=== PATIENT | female | born 1995 | race Caucasian/White ===

== ENCOUNTER → 2020-10-10 08:39 | Outpatient (BNVA) | payer OTHER, SELFPAY | PROVIDERS: Family Provider General Practice; PCP Orthopaedic Surgery; Visit Provider Nurse Practitioner Women's Health | DX: R87.610 Atypical squamous cells of undetermined significance on cytologic smear of cervix (ASC-US) (principal); Z11.3 Encounter for screening for infections with a predominantly sexual mode of transmission; N90.89 Other specified noninflammatory disorders of vulva and perineum | CPT/HCPCS: 87529; 88175 ==

== ENCOUNTER → 2023-01-23 10:21 | Outpatient (BNVA) | payer SELFPAY | PROVIDERS: Family Provider General Practice; PCP Orthopaedic Surgery; Visit Provider Family Medicine | DX: Z34.90 Encounter for supervision of normal pregnancy, unspecified, unspecified trimester (principal); R30.0 Dysuria | CPT/HCPCS: 80307; 81000; 81025; 84144; 84443; 84702; 85025; 86592; 86762; 86803; 86850; 86900; 87086; 87340; 87491; 87591; 87624; 87806 ==

== ENCOUNTER → 2023-03-27 10:43 | Outpatient (BNVA) | payer OTHER, SELFPAY | PROVIDERS: Family Provider General Practice; PCP Orthopaedic Surgery; Visit Provider Family Medicine | DX: Z34.00 Encounter for supervision of normal first pregnancy, unspecified trimester (principal) | CPT/HCPCS: 81511 ==

== ENCOUNTER 2023-04-24 08:42 | Outpatient (CLI) | payer OTHER, SELFPAY ==
--- NOTE | 2023-04-24 09:15 | US_ITS ---
WS: [id number] OBSTETRICAL ULTRASOUND COMPLETE HISTORY: Anatomy US - 9 weeks from now COMPARISON: None available. Single intrauterine gestation in variable presentation. Cervix is Closed and normal length. Cervical length is 3.8 cm. Normal amount of amniotic fluid surrounds the fetus. Placenta: Anterior, no previa or abruption. Placenta grade 1 Heart: 147 BPM. Four chambers are identified. Outflow tracts and anatomy is difficult to visualize du e to the maternal body habitus. Anatomy: Intracranial structures and spine are normal. kidneys, stomach and urinary bladd er are unremarkable. Abdominal wall, three-vessel cord and cord insertion site are normal. 4 extremities are present. profile: Unremarkable. Gender: Male. measurements: BPD = 4.8 cm = 20w3d; HC = 18.4 cm = 20w5d; AC = 14.7 cm = 20w0d; FL = 3.2 cm = 20w0d; EFW: 330 g. Biometry is internally concordant. AGA by ultrasound: 20w2d RADHA by ultrasound: 09/09/2023 IMPRESSION: 1. Single intrauterine gestation of 20w2d with an RADHA of 09/09/2023. 2. Anatomic screening survey is mildly limited. Especially limited detail concerning the heart. Sugg est cardiac reevaluation in 3 to 4 weeks. The remaining anatomy appears to be within normal limits.
== END 2023-04-24 08:43 | disposition home or self-care (01) ==
LOC: RAD 08:43
PROVIDERS: Family Provider General Practice; PCP Orthopaedic Surgery; Visit Provider Family Medicine
DX: O26.892 Other specified pregnancy related conditions, second trimester (principal); Z3A.20 20 weeks gestation of pregnancy
CPT/HCPCS: 76805

== ENCOUNTER → 2023-05-01 12:23 | Outpatient (BNVA) | payer OTHER, SELFPAY | PROVIDERS: Family Provider General Practice; PCP Orthopaedic Surgery; Visit Provider Family Medicine | DX: Z34.00 Encounter for supervision of normal first pregnancy, unspecified trimester (principal) | CPT/HCPCS: 87086 ==

== ENCOUNTER → 2023-05-29 08:06 | Outpatient (BNVA) | payer OTHER, SELFPAY | PROVIDERS: Family Provider General Practice; PCP Orthopaedic Surgery; Visit Provider Family Medicine | DX: Z34.00 Encounter for supervision of normal first pregnancy, unspecified trimester (principal) | CPT/HCPCS: 82950 ==

== ENCOUNTER 2023-06-05 09:21 | Outpatient (CLI) | payer OTHER, SELFPAY ==
--- NOTE | 2023-06-05 09:30 | US_ITS ---
WS: [id number] ULTRASOUND OB FOCUSED HISTORY: Follow up US of heart in 3 weeks COMPARISON: 04/24/2023 Single intrauterine gestation is present in cephalic presentation Heart rate at 136 bpm. Cervix is closed. Anterior grade 1 placenta. Normal amniotic fluid. heart rate at 136 BPM. Reevaluation of the heart is performed. Four-chamber heart is identified. There is continued li mited evaluation of the outflow tracts. The size of the outflow tracts appears appropriate and there is no obvious abnormality. Very limited due to patient's body habitus. IMPRESSION: 1. Continued limited evaluation of the cardiac outflow tracts due to body habitus. Grossly unremarka ble. There is no asymmetry of the outflow tracts. Normal four-chamber heart. 2. Normal cardiac activity.
== END 2023-06-05 09:22 | disposition home or self-care (01) ==
PROVIDERS: Family Provider General Practice; PCP Family Medicine; Visit Provider Family Medicine
DX: Z34.00 Encounter for supervision of normal first pregnancy, unspecified trimester (principal); Z36.89 Encounter for other specified antenatal screening
CPT/HCPCS: 76815

== ENCOUNTER → 2023-07-24 09:41 | Outpatient (BNVA) | payer OTHER, SELFPAY | PROVIDERS: Family Provider General Practice; PCP Family Medicine; Visit Provider Family Medicine | DX: Z51.81 Encounter for therapeutic drug level monitoring (principal) | CPT/HCPCS: 85025 ==

== ENCOUNTER → 2023-08-14 10:17 | Outpatient (BNVA) | payer OTHER, SELFPAY | PROVIDERS: Family Provider General Practice; PCP Family Medicine; Visit Provider Family Medicine | DX: Z34.90 Encounter for supervision of normal pregnancy, unspecified, unspecified trimester (principal); Z3A.00 Weeks of gestation of pregnancy not specified | CPT/HCPCS: 87081 ==

== ENCOUNTER 2023-09-15 07:08 | Inpatient (IN) | payer OTHER, SELFPAY ==
[2023-09-15] VITALS (54 sets, daily range): BP systolic 95–180; BP diastolic 53–103; PULSE 76–120; RESP 15–17; TEMP 36.2–36.7; O2SAT 96–99; BMI 43.1
[2023-09-15 08:12] LABS: Basophils % 0.3 %; Eosinophils # 0.1 10^3/uL (0.0-0.8); Hematocrit 39.3 % (36-47); Lymphocytes # 2.6 10^3/uL (0.8-4.8); Lymphocytes % 24.3 %; Mean Corpuscular HGB Conc 33.6 g/dL (30-55); Mean Corpuscular Hemoglobin 30.2 pg (27-33); Mean Corpuscular Volume 89.9 fl (85-98); Mean Platelet Volume 10.3 fL (7.4-10.4); Monocytes # 0.6 10^3/uL (0.2-0.9); Monocytes % 5.9 %; Neutrophils % 68.2 %; Nucleated Red Blood Cells % 0 %; Platelet Count 290 10^3/cmm (157-399); Red Blood Count 4.37 10^6/uL (3.85-5.65); Red Cell Distribution Width 15.2 % (12.1-15.1); White Blood Count 10.85 10^3/uL (3.29-11.43)
[2023-09-15] MEDS: dextrose 5%-lactated ringers 1,000 ML 125 ML IV (08:17)
[2023-09-15] MEDS: ampicillin 2,000 MG in sodium chloride 0.9% (plus) 50 ML 100 MG IV (08:17)
[2023-09-15 08:30] LABS: Alanine Aminotransferase 11 U/L (0-33); Albumin Level 3.2 g/dL (3.5-5.2); Alkaline Phosphatase 178 U/L (35-105); Anion Gap 16.8 (5-19); Aspartate Amino Transferase 15 U/L (0-32); Blood Urea Nitrogen 8 mg/dL (6-20); Carbon Dioxide 20 mmol/L (22-29); Chloride 102 mmol/L (98-107); Globulin 2.9 g/dL (1.3-4.6); Glomerular Filtration Rate 146.9 mL/min (90-130); Glucose 120 mg/dL (65-115); Osmolality Calculated 280 mOsm/kg (285-295); Potassium 3.8 mmol/L (3.5-5.1); Sodium 135 mmol/L (136-145); Total Bilirubin 0.2 mg/dL (0.15-1.2); Total Protein 6.1 g/dL (6.6-8.7); Uric Acid 4.9 mg/dL (2.4-5.7)
[2023-09-15] MEDS: oxytocin 30 UNIT/500 ML BAG IV (08:30)
[2023-09-15 09:01] LABS: UPRO/UCREAT Ratio 0.11 mg/mg CR; Urine Creatinine 94 mg/dL (28-217); Urine Protein Random 10 mg/dL
[2023-09-15] MEDS: ampicillin 1,000 MG in sodium chloride 0.9% (plus) 50 ML 100 MG IV ×3 (12:03→18:58)
[2023-09-15] MEDS: dextrose 5%-lactated ringers 1,000 ML 105 ML IV (16:09)
[2023-09-15] MEDS: fentaNYL 50 mcg/mL INJ 2mL IVP ×2 (17:35→18:47)
[2023-09-15] MEDS: ondansetron 2 mg/ML SDV 2 mL 4 MG IVP (18:48)
[2023-09-15] MEDS: lactated ringers 1,000 ML 999 ML IV ×2 (18:58→20:05)
[2023-09-15] MEDS: labetalol 5 mg/mL SDV 20mL 20 MG IVP (19:16)
[2023-09-15] MEDS: ROPivacaine syringe 100 MG/50 ML SYRINGE 10 MG EPIDURAL (20:10)
--- NOTE | 2023-09-15 20:10 | ANES.PREANE2 ---
Pre-Anesthetic Assessment Height/Weight: Height 1.57 m Weight 107.048 kg Temp Pulse Resp BP Pulse Ox O2 Del Method 97.3 F L 99 17 168/82 98 Room Air 09/15/23 17:39 09/15/23 20:06 09/15/23 18:47 09/15/23 20:06 09/15/23 20:04 09/15/23 07:15 Preop Diagnosis: IUP epidural Familial anesthetic complications: none Was Beta Krishna taken within 24 hours: N/A Was Clonidine taken within 24 hours: N/A Last Intake: 18:30 Social No alcohol and No tobacco Exam alert and oriented x 3 Airway Submandibular: within normal limits Cervical ROM: within normal limits Mallampati: Class II Dentition: full History/ROS No significant complaints Anesthetic Plan ASA status: 2 Anesthesia: Anesthesia Evaluation and Regional (specify below) Risk of > 500 ml blood loss (7ml/kg in children): Yes, adequate IV access and fluids planned Medications/Allergies Home Medications Medication Instructions Recorded Confirmed Last Taken Type vitamin#30 30 mg iron-10 cap PO 01/23/23 09/04/23 09/14/23 21:00 History mg iron-folic acid 1 mg-omg3 capsule pyridoxine (vitamin B6) 100 mg 100 mg PO BID PRN Nausea #60 tabs 01/23/23 09/04/23 09/14/23 21:00 Rx tablet acyclovir 400 mg tablet 400 mg PO TID 30 days #90 tabs 07/24/23 09/04/23 09/14/23 21:00 Rx Allergies Allergy/AdvReac Type Severity Reaction Status Date / Time No Known Allergies Allergy Verified 02/20/23 10:04 Current Medications Generic Name Dose Route Start Last Admin Trade Name Freq PRN Reason Stop Dose Admin Fentanyl 25 - 100 mcg 09/15/23 17:30 09/15/23 18:47 Fentanyl 50 Mcg/Ml Inj 2ml IVP 50 mcg Q1H PRN Administration SEVERE PAIN Dextrose/Lactated Ringer's 1,000 mls @ 125 mls/hr 09/15/23 07:30 09/15/23 18:58 Dextrose 5%-Lactated Ringers IV 0 mls/hr .Q8H UMU Infusion Ampicillin Sodium 1,000 mg/ 50 mls @ 100 mls/hr 09/15/23 11:30 09/15/23 18:58 Sodium Chloride IV 100 mls/hr Q4H UMU Administration Protocol Oxytocin 30 unit in 500 mls @ 1 mls/hr 09/15/23 08:00 09/15/23 12:00 Pitocin IV 20 milliunit/min .Q24H UMU 20 mls/hr Titration Protocol 1 MILLIUNIT/MIN Lactated Ringer's 1,000 mls @ 999 mls/hr 09/15/23 17:57 09/15/23 18:58 Lactated Ringers IV 999 mls/hr .Q1H1M PRN Administration See label comments Labetalol HCl 20 mg 09/15/23 19:05 09/15/23 19:16 Labetalol 5 Mg/Ml Sdv 20ml IVP 20 mg PRN PRN Administration HYPERTENSION Protocol Ondansetron HCl 4 mg 09/15/23 07:29 09/15/23 18:48 Ondansetron 2 Mg/Ml Sdv 2 Ml IVP 4 mg Q4H PRN Administration NAUSEA AND VOMITING PFSH Anesthesia Medical History Genital herpes No pertinent past medical history neghx: htn,dm,thyroid,dvt/pe PCP: None Surgical History Hx of knee surgery 2008 2012 2013 R knee Family History Father Hypertension Denies family history of Colon cancer Ovarian cancer Diabetes Heart disease Hypercholesteremia Breast cancer Uterine cancer Thyroid disease Stroke Social History Smoking and tobacco/nicotine status: never used tobacco/nicotine Second hand smoke exposure: No Alcohol intake: never Substance/Drug Use: never Current occupation: [employer] Female Reproductive History : 1 Data Anesthesia 09/15/23 07:35 09/15/23 07:35 Short CBC 09/15/23 Range/Units 07:35 WBC 10.85 (3.29-11.43) 10^3/uL Hgb 13.20 (11.27-16.99) g/dL Hct 39.3 (36-47) % MCV 89.9 (85-98) fl Plt Count 290 (157-399) 10^3/cmm Neut % (Auto) 68.2 % Neut # (Auto) 7.40 (1.8-7.7) 10^3/uL BMP 09/15/23 07:35 Sodium 135 L Potassium 3.8 Chloride 102 Carbon Dioxide 20 L BUN 8 Creatinine 0.5 Glucose 120 H Calcium 9.0 Liver Function 09/15/23 Range/Units 07:35 Total Bilirubin 0.2 (0.15-1.2) mg/dL AST 15 (0-32) U/L ALT 11 (0-33) U/L Alkaline Phosphatase 178 H (35-105) U/L Albumin 3.2 L (3.5-5.2) g/dL Blood Bank 09/15/23 07:35 Blood Type O Positive Rho(D) Type Rh positive Antibody Screen Negative Cardiac Studies: No Data to Display
--- NOTE | 2023-09-15 20:11 | ANES.PROC ---
Anesthesia Procedures Procedure/Date: 09/15/23 Epidural: Time Out Performed: Yes Consents Signed: Procedure Consent Consent: from patient, risks and benefits reviewed and patient agrees to proceed Lumbar Level: L3-L4 Epidural position: sitting Epidural procedure: sterile prep of area, 1% lidocaine to numb the area, 18 g needle, negative for paresthesia passed, neg for paresthesia, test dose given, 1.5% xylocaine 1:200k epi, placed PCEA, no systemic response, sterile dressing applied, L.U.D. no apparent complications and 0.2% Ropiavacaine @ mls/hr (10) Additional Comments: ESTEBAN at 5.5. negative blood/CSF upon apsiration. tapedat 12 at skin.
[2023-09-16] VITALS (75 sets, daily range): BP systolic 91–175; BP diastolic 52–98; PULSE 92–164; RESP 16–17; TEMP 36.7–37.3; O2SAT 97–98
[2023-09-16] MEDS: ampicillin 1,000 MG in sodium chloride 0.9% (plus) 50 ML 100 MG IV ×4 (00:08→11:34)
[2023-09-16] MEDS: ROPivacaine syringe 100 MG/50 ML SYRINGE 10 MG EPIDURAL ×3 (00:46→10:17)
[2023-09-16] MEDS: calcium carbonate 500 mg Chew Tablet 1000 MG PO (00:47)
--- NOTE | 2023-09-16 07:45 | PM.PN ---
Subjective Subjective: The patient is feeling well at this time. She had a laboring epidural and it is working well for her. heart tones are currently in the mid 140s but revealing good excoriations with a category 1 tracing. She is nata every 2 to 3 minutes. She is on 20 units of Pitocin. Vitals/I&O/Wt Last Vital Signs Temp 99.2 F 09/16/23 06:26 Pulse 116 H 09/16/23 07:31 Resp 17 09/15/23 18:47 BP 141/87 09/16/23 07:31 Pulse Ox 98 09/15/23 20:04 O2 Del Method Room Air 09/15/23 07:15 09/15/23 09/16/23 09/16/23 22:59 06:59 14:59 Intake Total 3031.50 / 3596.583 200 / 3796.583 Balance 3031.50 / 3596.583 200 / 3796.583 Weight last 48 hrs Weight 236 lb Physical Exam Narrative: General: Alert and oriented x3 Cardiac: Regular rate and rhythm without murmurs Lungs: Clear to auscultation bilaterally without wheezes, crackles or rhonchi Abdomen: Soft, non-tender, fundus consistent with gestational age Extremities: +1 edema in the bilateral lower extremities Urinary Catheter Management: Pa: Cath Placed During This Visit: yes Reason for Continuing Indwelling Catheter: Accurate Measurement of Urinary Output in Critically Ill Patients Urinary Catheter Date of Insertion: 09/15/23 Urinary Catheter Time of Insertion: 20:35 Data 09/15/23 07:35 09/15/23 07:35 A&P Assessment and plan (1) Supervision of normal intrauterine in primigravida: The patient is currently 9.5 cm dilated with 100% effacement. She is negative to station still. Her overall labor curve has been slow and based on exam this morning I feel that the infant may be in the OP position. We will try position changes to try and change this. We will monitor the situation to determine the next step. Continue with current induction at this time. Continue with ampicillin for GBS prophylaxis. Qualifiers: Trimester: second trimester Qualified Code(s): Z34.02 - Encounter for supervision of normal first , second trimester Attestations Medical Necessity Statement*: The patient continues to need inpatient care for routine intrapartum management. Her care will cross 2 midnights. Coding Level of Care Code Acute Code for Chg Fwd Diagnoses Encounter for supervision of normal first in second trimester Z34.02 Trimester: second trimester
[2023-09-16] MEDS: oxytocin 30 UNIT/500 ML BAG 20 UNIT IV (07:50)
[2023-09-16] MEDS: dextrose 5%-lactated ringers 1,000 ML 105 ML IV (07:50)
[2023-09-16] MEDS: acetaminophen 325 mg Tablet 650 MG PO (13:44)
--- NOTE | 2023-09-16 13:49 | P.PCNOB_ITS ---
Delivery Note: Date of delivery: September 16, 2023 Pre-delivery diagnoses: 1. Intrauterine at 40.5 weeks gestation 2. History of genital herpes without ac tive lesions currently on acyclovir for prophylaxis 3. GBS positive Post-delivery diagnoses: 1. Intrauterine status post s pontaneous vaginal delivery at 40.5 weeks gestation 2. History of genital herpes without ac tive lesions currently on acyclovir for prophylaxis 3. GBS positive 4. Delivery of healthy male mila sangita 8 pounds 7 ounces with Apgars of 8 and 9 5. Secondary vaginal wall tear with rep air. Procedure: Spontaneous vaginal delivery Vaginal tear with repair Delivering Physician: Surinder Wilson MD Estimated blood loss (mL): 300 Findings: 1. Healthy male weighing 8 pound s 7 ounces with Apgars of 8 and 9 2. Intact placenta Pre-Delivery Course: Greta is a 27 y/o G1 now P1 @ 40.5 wks by LMP c/w 5 wk US. Preg c/b h/o genital herpes on acyclovir for prophylaxis, difficulty with getting , borderline BP at first visit, GBS positive. The patient presented to labor and delivery for a scheduled induction of labor on the morning of 09/15/2023 at 7 AM. She had a Wells score of 6 so was started on IV Pitocin. She was started on GBS prophylaxis with ampicillin. The patient contracted well and the IV Pitocin was increased up to 20 units. There were no concerning late decelerations or heart tone findings during this process. The patient made steady change and spontaneous rupture of membranes occurred at 1727 on 09/15/2023. She was 5 cm at that time. Shortly after this she received a laboring epidural. This helped well with her pain. She continues to make change, however it was quite slow. Multiple position changes were done to try and help with positioning of the 's head as there was concern that he was OP. She eventually became complete at 11:17 AM on 09/16/2023. Delivery: She began pushing at 11:43 AM on 09/16/2023. She pushed well and the infant delivered in the OA position at 1313 on 09/16/2023. A nuchal cord was present and reduced prior to delivery of the infant's body. The right shoulder was anterior shoulder and it delivered with ease. The rest of the delivered with steady pressure. The infant was crying immediately upon delivery. His mouth and nose were bulb suctioned by myself. The infant was then placed on the mother's chest where the nurses were waiting to care for him. The cord was clamped by myself after approximately 1 minute. Cord blood was obtained. The cord was then drained of blood and traction was placed on the vocal cord. Uterine massage was carried out and the placenta delivered without complication at 1318 on 09/16/2023. The placenta was noted to be intact with a central umbilical cord insertion site. The cervix was inspected and no lacerations were noted. The vaginal wall was inspected and a second-degree laceration was noted on the right superior vaginal wall. There was another laceration in the left inferior vaginal wall. Both were bleeding, so 3-0 Vicryl was used to repair of these in a running fashion. No lidocaine was necessary as her epidural provided adequate anesthesia. The patient tolerated this well. Rectal exam was done and no sutures were noted in the rectal vault. Currently both mother and infant are doing well. History History History 1 Term 0 0 Miscarriages/Ectopic 0 Living Children 0 Past Pregnancies Del. Date GA/Weeks Outcome Route Wt Inf Gender Labor Lgth Comp. Anesth esia Location 09/16/23 40 live - full term Vaginal 8 lb 7 oz Male 30 hrs regional [facility] Delivery Date: 09/16/23 Last Updated by: Surinder Wilson MD GBS, h/o genital herpes on acyclovir - no lesions. A&P Assessment and plan (1) Spontaneous vaginal delivery: Coding Level of Care Code Acute Code for Chg Fwd Diagnoses Spontaneous vaginal delivery O80
--- NOTE | 2023-09-16 14:20 | PM.HP ---
Providers/Chief Complaint Admitting Physician: Surinder Wilson MD Primary Care Provider: Surinder Wilson MD Chief Complaint: INDUCTION OF LABOR History of Present Illness Date of visit: 09/15/2023 at 8 AM. Greta Kitchen is a 27 year old @ 40.4 wks by LMP c/w 5 wk US. Preg c/b h/o genital herpes on acyclovir for prophylaxis, difficulty with getting , borderline BP at first visit, GBS positive The patient presented to labor and delivery for a scheduled induction of labor on the morning of 09/15/2023. She was noted to be 1 cm dilated with 80% effacement and -2 station. She is nata every 2 to 5 minutes but is not feeling these contractions. She denies any leakage of fluid, vaginal bleeding, nausea, vomiting, diarrhea, constipation, fevers, cough, chest pain, shortness of breath. The patient also denies any burning or signs consistent with an outbreak of genital herpes. Medications/Allergies Home Medications Medication Instructions Recorded Confirmed Last Taken Type vitamin#30 30 mg iron-10 1 cap PO DAILY supplement 01/23/23 09/16/23 09/14/23 21:00 History mg iron-folic acid 1 mg-omg3 capsule pyridoxine (vitamin B6) 100 mg 100 mg PO BID PRN Nausea #60 tabs 01/23/23 09/16/23 09/14/23 21:00 Rx tablet acyclovir 400 mg tablet 400 mg PO TID 30 days #90 tabs 07/24/23 09/16/23 09/14/23 21:00 Rx Allergies Allergy/AdvReac Type Severity Reaction Status Date / Time No Known Allergies Allergy Verified 02/20/23 10:04 PFSH Acute PFSH: Medical History Genital herpes No pertinent past medical history neghx: htn,dm,thyroid,dvt/pe PCP: None Surgical History Hx of knee surgery 2008 2012 2013 R knee Family History Father Hypertension Denies family history of Colon cancer Ovarian cancer Diabetes Heart disease Hypercholesteremia Breast cancer Uterine cancer Thyroid disease Stroke Social History Smoking and tobacco/nicotine status: never used tobacco/nicotine Second hand smoke exposure: No Alcohol intake: never Substance/Drug Use: never Current occupation: [employer] Female Reproductive History: : 1 Vitals/I&O/Wt Last Vital Signs Temp 98.1 F 09/16/23 09:17 Pulse 134 H 09/16/23 14:16 Resp 16 09/16/23 09:17 BP 128/80 09/16/23 14:16 Pulse Ox 98 09/15/23 20:04 O2 Del Method Room Air 09/15/23 07:15 09/15/23 09/16/23 09/16/23 22:59 06:59 14:59 Intake Total 3031.50 / 3596.583 200 / 3796.583 1103.917 / 1103.917 Output Total 700 / 700 Balance 3031.50 / 3596.583 200 / 3796.583 403.917 / 403.917 Weight last 48 hrs Weight 236 lb Physical Exam Narrative: General: Alert and oriented x3 Eyes: Pupils equal round and reactive to light and accommodation Mouth: Mucous membranes moist, pharynx non-erythematous Cardiac: Regular rate and rhythm without murmurs Lungs: Clear to auscultation bilaterally without wheezes, crackles or rhonchi Abdomen: Soft, non-tender, fundus consistent with gestational age : Perineum and vaginal wall inspected and no ulcerations are appreciated. Extremities: Trace edema in the bilateral lower extremities Urinary Catheter Management: Pa: Cath Placed During This Visit: yes Reason for Continuing Indwelling Catheter: Accurate Measurement of Urinary Output in Critically Ill Patients Urinary Catheter Date of Insertion: 09/15/23 Urinary Catheter Time of Insertion: 20:35 Data 09/15/23 07:35 09/15/23 07:35 A&P Assessment and plan (1) Supervision of normal intrauterine in primigravida: The patient is doing well this time. heart tones are in the mid 140s with moderate variability good accelerations with a category 1 tracing. There are no signs of complications related to genital herpes at this time. The patient has been taking acyclovir for prophylaxis. Her Wells score is currently 6 so we will go ahead and start her on IV Pitocin for induction of labor. She is okay to have an epidural if she would like when she gets to 3 cm. IV pain meds prior to this if needed. Routine intrapartum management plan discussed with the patient and all questions were answered. The patient and her are in agreement with current plan of care. Qualifiers: Trimester: second trimester Qualified Code(s): Z34.02 - Encounter for supervision of normal first , second trimester (2) Genital herpes: Qualifiers: Herpes simplex infection site: vulvovaginitis Qualified Code(s): A60.04 - Herpesviral vulvovaginitis Attestations Medical Necessity Statement*: The patient will be here for greater than 2 midnights due to routine intrapartum and management of labor and delivery. Coding Level of Care Code Acute Code for Chg Fwd Diagnoses Encounter for supervision of normal first in second trimester Z34.02 Trimester: second trimester Herpes simplex vulvovaginitis A60.04 Herpes simplex infection site: vulvovaginitis
[2023-09-16] MEDS: lanolin oint 7 gm 1 APPLIC TOPICAL (15:21)
[2023-09-16] MEDS: benzocaine-menthol 78 gm Canister 1 SPRAY TOPICAL (15:21)
[2023-09-16] MEDS: ibuprofen 800 mg tablet PO ×2 (15:21→20:11)
--- NOTE | 2023-09-16 16:14 | PC.NURSE ---
assisted pt up to bathroom and with nj care. pad and gown changed.
--- NOTE | 2023-09-16 18:30 | PC.NURSE ---
ambulated to OB7 for post care. oriented to room/call light. proud parent pack and feeding log discussed.
[2023-09-16] MEDS: docusate sodium 100 mg Capsule PO (20:11)
[2023-09-17 02:36] LABS: Hematocrit 26.6 % (36-47); Mean Corpuscular HGB Conc 32.3 g/dL (30-55); Mean Corpuscular Hemoglobin 29.8 pg (27-33); Mean Platelet Volume 10.5 fL (7.4-10.4); Platelet Count 211 10^3/cmm (157-399); Red Blood Count 2.89 10^6/uL (3.85-5.65); Red Cell Distribution Width 15.7 % (12.1-15.1); White Blood Count 17.94 10^3/uL (3.29-11.43)
[2023-09-17 05:11] VITALS: BP 124/80; PULSE 97; RESP 16; TEMP 36.7; O2SAT 97
--- NOTE | 2023-09-17 08:24 | P.DS_ITS ---
Discharge Providers Date of Admission: 09/15/23 07:08 Date of Discharge: September 17, 2023 Attending Provider at Admission: Surinder Wilson MD Attending Provider at Discharge: Surinder Wilson MD Primary Care Provider: Surinder Wilson MD Diagnoses at Discharge Discharge Diagnosis (1) Spontaneous vaginal delivery: Status: Acute Other Information Additional DC diagnoses/information: 1. Intrauterine status post spontaneous vaginal delivery at 40.5 weeks gestation 2. History of genital herpes without active lesions currently on acyclovir for prophylaxis 3. GBS positive 4. Delivery of healthy male weighing 8 pounds 7 ounces with Apgars of 8 and 9 5. Secondary vaginal wall tear with repair. Reason for Visit Reason for Visit: INDUCTION OF LABOR Hospital Course Hospital Course Greta is a 27 y/o G1 now P1 status post spontaneous vaginal delivery@ 40.5 wks by LMP c/w 5 wk US. Preg c/b h/o genital herpes on acyclovir for prophylaxis, diffi culty with getting , borderline BP at first visit, GBS positive. The patient presented to labor and delivery for a scheduled induction of labor on the morning of 09/15/2023 at 7 AM. She had a Wells score of 6 so was started on IV Pitocin. She was started on GBS prophylaxis with ampicillin. The patient contracted well and the IV Pitocin was increased up to 20 units. There were no concerning late decelerations or heart tone findings during this process. The patient made steady change and spontaneous rupture of membranes occurred at 1727 on 09/15/2023. She made slow change and delivered at 1313 on 09/16/2023. She had a second-degree vaginal tear x 2 and these were repaired. The patient's bleeding was moderate after delivery and decreased well with IV Pitocin. , the patient has done well overall. Her hemoglobin did drop after delivery. She is asymptomatic from this. We discussed routine precautions regarding this. Her bleeding is slow at this point. She is ambulating, voiding, passing gas and tolerating food by mouth. Overall her pain is well- controlled. She has been breast-feeding her son. Routine discharge instructions were discussed. All questions were answered. The patient and her are in agreement with discharge home at this time. She will let her know if she is having any concerns prior to her next appointment. Physical Exam Narrative: General: Alert and oriented x3 Cardiac: Regular rate and rhythm without murmurs Lungs: Clear to auscultation bilaterally without wheezes, crackles or rhonchi Abdomen: Soft, mild tenderness over uterus. The uterus is firm and 2 cm below the umbilicus. Extremities: Trace edema in the bilateral lower extremities Urinary Catheter Management: Pa: Cath Placed During This Visit: yes, but has since been removed by the nurse Reason for Continuing Indwelling Catheter: Decision to DC Catheter Urinary Catheter Date of Insertion: 09/15/23 Urinary Catheter Time of Insertion: 20:35 Date Urinary Catheter Removed: 09/16/23 Time Urinary Catheter Discontinued: 11:40 Discharge Data Studies Completed and Pending Laboratory Results WBC 17.94 10^3/uL (3.29-11.43) H 09/17/23 02:00 RBC 2.89 10^6/uL (3.85-5.65) L 09/17/23 02:00 Hgb 8.60 g/dL (11.27-16.99) L 09/17/23 02:00 Hct 26.6 % (36-47) L 09/17/23 02:00 MCV 92.0 fl (85-98) 09/17/23 02:00 MCH 29.8 pg (27-33) 09/17/23 02:00 MCHC 32.3 g/dL (30-55) 09/17/23 02:00 RDW 15.7 % (12.1-15.1) H 09/17/23 02:00 Plt Count 211 10^3/cmm (157-399) 09/17/23 02:00 MPV 10.5 fL (7.4-10.4) H 09/17/23 02:00 Neut % (Auto) 68.2 % 09/15/23 07:35 Lymph % (Auto) 24.3 % 09/15/23 07:35 [place] % (Auto) 5.9 % 09/15/23 07:35 Eos % (Auto) 1.0 % 09/15/23 07:35 Baso % (Auto) 0.3 % 09/15/23 07:35 Neut # (Auto) 7.40 10^3/uL (1.8-7.7) 09/15/23 07:35 Lymph # (Auto) 2.6 10^3/uL (0.8-4.8) 09/15/23 07:35 [place] # (Auto) 0.6 10^3/uL (0.2-0.9) 09/15/23 07:35 Eos # (Auto) 0.1 10^3/uL (0.0-0.8) 09/15/23 07:35 Baso # (Auto) 0.0 10^3/uL (0.0-0.1) 09/15/23 07:35 Nucleated RBC % (auto) 0 % 09/15/23 07:35 Nucleated RBCs # 0.0 /100WBC 09/15/23 07:35 Sodium 135 mmol/L (136-145) L 09/15/23 07:35 Potassium 3.8 mmol/L (3.5-5.1) 09/15/23 07:35 Chloride 102 mmol/L (98-107) 09/15/23 07:35 Carbon Dioxide 20 mmol/L (22-29) L 09/15/23 07:35 Anion Gap 16.8 (5-19) 09/15/23 07:35 BUN 8 mg/dL (6-20) 09/15/23 07:35 Creatinine 0.5 mg/dL (0.5-0.9) 09/15/23 07:35 GFR Calculation 146.9 mL/min (90-130) H 09/15/23 07:35 Glucose 120 mg/dL (65-115) H 09/15/23 07:35 Calculated Osmolality 280 mOsm/kg (285-295) L 09/15/23 07:35 Uric Acid 4.9 mg/dL (2.4-5.7) 09/15/23 07:35 Calcium 9.0 mg/dL (8.5-10.5) 09/15/23 07:35 Total Bilirubin 0.2 mg/dL (0.15-1.2) 09/15/23 07:35 AST 15 U/L (0-32) 09/15/23 07:35 ALT 11 U/L (0-33) 09/15/23 07:35 Alkaline Phosphatase 178 U/L (35-105) H 09/15/23 07:35 Total Protein 6.1 g/dL (6.6-8.7) L 09/15/23 07:35 Albumin 3.2 g/dL (3.5-5.2) L 09/15/23 07:35 Globulin 2.9 g/dL (1.3-4.6) 09/15/23 07:35 U Random Total Protein 10 mg/dL 09/15/23 08:10 Urine Creatinine 94 mg/dL (28-217) 09/15/23 08:10 Protein/Creatinin Ratio 0.11 mg/mg CR 09/15/23 08:10 Blood Type O Positive 09/15/23 07:35 Rho(D) Type Rh positive 09/15/23 07:35 Antibody Screen Negative 09/15/23 07:35 Vitals Last Vital Signs Temp 98.0 F 09/17/23 05:11 Pulse 97 09/17/23 05:11 Resp 16 09/17/23 05:11 BP 124/80 09/17/23 05:11 Pulse Ox 97 09/17/23 05:11 O2 Del Method Room Air 09/16/23 23:15 Discharge Plan Discharge Patient Disposition: Home Condition: Good Prescriptions: New ibuprofen 800 mg Tablet 800 mg PO TID Qty: 60 0RF docusate sodium 100 mg Capsule 100 mg PO BID Qty: 30 0RF ferrous sulfate 325 mg (65 mg iron) tablet 325 mg PO BID Qty: 60 0RF Continued PNV #[id number] 30 mg iron-10 mg iron-1 mg capsule 1 cap PO DAILY Discontinued pyridoxine (vitamin B6) 100 mg tablet 100 mg PO BID PRN (Reason: Nausea) Qty: 60 0RF acyclovir 400 mg tablet 400 mg PO TID 30 Days Qty: 90 1RF Discharge Orders: Discharge Order (Routine); Ordered 09/17/23 Ordered By: Surinder Wilson Referrals: Surinder Wilson MD [Primary Care Provider] - 10/21/23 9:00 am Discharge Diet: Regular Discharge Activity: Increase activity as tolerated Patient Instructions: Depression (DC), Opioid Safety (DC), Preeclampsia and Eclampsia After Delivery (GEN), Hemorrhage (DC), OB Discharge Report, OB Food/Drug Interaction Guide, Opioid Safety, OB [facility], Abnormal Bleeding Activity Restrictions/Additional Instructions: Nothing per vagina for 6 weeks Discharge Attestations Time Spent in Discharge Care*: greater than 30 min Quality Metrics Clinical Quality Measures [ No reported AMI, CVA or VTE this stay] Coding Level of Care Code Acute Code for Chg Fwd Diagnoses Spontaneous vaginal delivery O80
[2023-09-17 09:10] VITALS: BP 120/93; PULSE 98; RESP 17; TEMP 36.7
[2023-09-17] MEDS: PRENATAL VIT NO.130/IRON/FOLIC 1 EACH TABLET PO (10:49)
[2023-09-17] MEDS: docusate sodium 100 mg Capsule PO (10:49)
[2023-09-17] MEDS: ibuprofen 800 mg tablet PO (10:49)
--- NOTE | 2023-09-17 13:44 | ANE.PACU2 ---
Inpatient post-anesthesia follow up: Airway intact: Yes Vital signs: Temperature 98.0 F Pulse Rate 97 Respiratory Rate 16 Blood Pressure 124/80 Pulse Oximetry 97 Oxygen Delivery Me thod Room Air Oxygen Flow Rate Fraction of Inspir ed Oxygen Hydration adequate: Yes Nausea and vomiting: No Pain level: 1 Mental status: Baseline Epidural Start/End: Epidural Start Date: 09/15/23 Epidural Start Time: 19:52 Epidural End Date: 09/16/23 Epidural End Time: 13:55
[2023-09-17 16:45] VITALS: BP 127/86; PULSE 95; RESP 17; TEMP 36.7
[2023-09-17 17:10] VITALS: BP 127/86; PULSE 95; RESP 17; TEMP 36.7
== END 2023-09-17 17:10 | disposition home or self-care (01) | DRG 807 ==
LOC: OPOB 07:11 → OBGYN 07:11
PROVIDERS: Admitting Provider Family Medicine; Family Provider General Practice; PCP Family Medicine; Visit Provider Family Medicine
DX: O98.32 Other infections with a predominantly sexual mode of transmission complicating childbirth (principal); Z37.0 Single live birth; O48.0 Post-term pregnancy; Z3A.40 40 weeks gestation of pregnancy; O99.824 Streptococcus B carrier state complicating childbirth; O69.81X0 Labor and delivery complicated by cord around neck, without compression, not applicable or unspecified; O70.1 Second degree perineal laceration during delivery
CPT/HCPCS: 36415; 51702; 59025; 59409; 80053; 82570; 84156; 84550; 85025; 85027; 86850; 86900; 96374; 96376; 99211; J0290; J2405; J2590; J2795; J3010; J3490; J7120; J7121